=== PATIENT | female | born 1960 | race Caucasian/White ===

== ENCOUNTER 2021-02-24 07:55 | Day surgery (SDC) | payer OTHER ==
[2021-02-23 10:17] VITALS: BMI 24.1
[~2021-02-24 07:55] MED LIST: LACTATED RINGERS 1,000 ML IV SCH; LIDOCAINE 1% (10MG/ML) FOR IV START INTRADERMA PRN
[2021-02-24 08:58] VITALS: TEMP 97
[2021-02-24] MEDS ORDERED: PROPOFOL 10 MG/ML 20 ML VIAL IV ONE (08:58)
[2021-02-24] MEDS ORDERED: fentaNYL (PF) 50 MCG/ML 2 ML AMP ONE (08:58)
[2021-02-24] MEDS ORDERED: MIDAZOLAM 2 MG/2 ML VIAL ONE (08:58)
[2021-02-24 08:59] LABS: Glucose,Whole Blood 214 mg/dL (75-99)
--- NOTE | 2021-02-24 09:00 | P.GSHP ---
History of Present Illness H&P Date: 02/24/21 Chief Complaint: Colon cancer screening Patient today for colonoscopy. Last colonoscopy 8-10 years ago. The study was normal. No bowel complaints. No family history of colon cancer. Past Medical History Past Medical History: Atrial Fibrillation, Diabetes Mellitus, Hyperlipidemia History of Any Multi-Drug Resistant Organisms: None Reported Past Surgical History: Orthopedic Surgery, Tubal Ligation Additional Past Surgical History / Comment(s): colonscopy, ganglion cyst removed right wrist, left foot surg. Past Anesthesia/Blood Transfusion Reactions: No Reported Reaction Smoking Status: Never smoker - Past Family History Mother Family Medical History: Cancer, Deep Vein Thrombosis (DVT) Medications and Allergies Home Medications Medication Instructions Recorded Confirmed Type Bisoprolol [Zebeta] 2.5 mg PO DAILY 02/23/21 02/23/21 History Insulin Aspart Protam & Aspart 20 unit SQ BID 02/23/21 02/23/21 History [NovoLOG MIX 70-30 Flexpen] Rivaroxaban [Xarelto] 20 mg PO DAILY 02/23/21 02/23/21 History Rosuvastatin [Crestor] 10 mg PO HS 02/23/21 02/23/21 History metFORMIN HCL [Glucophage] 10 mg PO BID 02/23/21 02/23/21 History Allergies Allergy/AdvReac Type Severity Reaction Status Date / Time No Known Allergies Allergy Verified 02/23/21 10:00 Surgical - Exam Vital Signs Temp Pulse Resp BP Pulse Ox 97.0 F L 62 15 149/78 97 02/24/21 08:53 02/24/21 08:53 02/24/21 08:53 02/24/21 08:53 02/24/21 08:53 Physical exam: General: Well-developed, well-nourished HEENT: Normocephalic, sclerae nonicteric Abdomen: Nontender, nondistended Extremities: No edema Neuro: Alert and oriented Results - Labs Abnormal Lab Results - Last 24 Hours (Table) 02/24/21 Range/Units 08:52 POC Glucose (mg/dL) 214 H (75-99) mg/dL Assessment and Plan (1) Colon cancer screening Narrative/Plan: Will proceed with colonoscopy Current Visit: Yes Status: Acute Code(s): Z12.11 - ENCOUNTER FOR SCREENING FOR MALIGNANT NEOPLASM OF COLON SNOMED Code(s): 736635366
--- NOTE | 2021-02-24 09:15 | P.PCN ---
Date of Procedure: 02/24/21 Procedure(s) Performed: PREOPERATIVE DIAGNOSIS: Colon cancer screening POSTOPERATIVE DIAGNOSIS: Normal exam PROCEDURE: Colonoscopy ANESTHESIA: MAC SURGEON: Jake Conklin M.D. SPECIMENS: None ENDOSCOPIC PROCEDURE: The patient was placed on the endoscopy table in the left decubitus position. The Olympus colonoscope was inserted into the anus and passed under direct visualization to the base of the cecum. The appendiceal orifice was visualized. From that point the scope was slowly withdrawn inspecti ng all surfaces carefully. There were no neoplastic inflammatory or polypoid lesions throughout the cecum, ascending, transverse, descending, sigmoid and rectum. There was no visible diverticulosis noted. Digital rectal examination was normal. The patient was taken to the recovery room in stable condition per anesthesia guidelines. RECOMMENDATIONS: Resume diet. Follow-up colonoscopy 10 years.
[2021-02-24 09:22] VITALS: RESP 16
[2021-02-24 09:24] LABS: Glucose,Whole Blood 224 mg/dL (75-99)
[2021-02-24 09:43] VITALS: BP 131/72; PULSE 59
== END 2021-02-24 09:59 | disposition home or self-care (01) ==
LOC: ORWHC2ENDO 07:55
PROVIDERS: ATTEND Surgery
DX: Z12.11 Encounter for screening for malignant neoplasm of colon (principal); E11.9 Type 2 diabetes mellitus without complications; E78.5 Hyperlipidemia, unspecified; I48.91 Unspecified atrial fibrillation; Z79.4 Long term (current) use of insulin
CPT/HCPCS: G0121; J2250; J3010; J2704

== ENCOUNTER → 2022-03-16 | Outpatient (CLI) | payer OTHER ==
[2022-03-17 15:39] LABS: Alternaria alternata IgE <0.10 kU/L; Aspergillus fumagatus IgE <0.10 kU/L; Birch IgE 7.97 kU/L; Cat Epith & Dander IgE 2.48 kU/L; Cladosporian herbarum IgE <0.10 kU/L; Cockroach IgE <0.10 kU/L; Dermato. farinae IgE 1.93 kU/L; Dog Dander IgE <0.10 kU/L; Elm IgE 0.33 kU/L; Maple (Box Elder) IgE 0.95 kU/L; Oak IgE 3.02 kU/L; Ragweed,Common IgE <0.10 kU/L; Red Top (Bentgrass) IgE 3.63 kU/L
== END | disposition home or self-care (01) ==
LOC: LABWHC1 15:28
PROVIDERS: ATTEND Internal Medicine
DX: J82.83 Eosinophilic asthma (principal)
CPT/HCPCS: 36415; 82785; 85008; 86003